=== PATIENT | male | born 1980 | race Caucasian/White ===

== ENCOUNTER 2022-03-31 04:23 | Emergency (ER) | payer BC, OTHER ==
[2022-03-31] MEDS ORDERED: Cephalexin 250 MG Cap PO ONE (05:08)
[2022-03-31] MEDS ORDERED: Ibuprofen 600 MG Tab ONE (05:27)
== END 2022-03-31 05:35 | disposition home or self-care (01) ==
LOC: KA.ED 04:23
DX: S61.230A Puncture wound without foreign body of right index finger without damage to nail, initial encounter (principal); W45.0XXA Nail entering through skin, initial encounter; Y99.0 Civilian activity done for income or pay
CPT/HCPCS: 73140-F6; 99283; A9270-GY